=== PATIENT | male | born 1965 | race Caucasian/White ===

== ENCOUNTER 2017-01-16 23:54 | Emergency (ER) | payer OTHER, MEDICARE ==
[~2017-01-16] VITALS: Ht 170.2 cm; Wt 87.5 kg
[~2017-01-16 23:54] MED LIST: AZIT250T6 PO; HYDR-971 PO; PRED50TA PO; PREG50CA PO; PREG75CA PO
[2017-01-17] MEDS ORDERED: KETOROLAC TROMETHAMINE 30 MG/ML INJ. IV ONE (00:15)
[2017-01-17] MEDS ORDERED: 0.9 % SODIUM CHLORIDE 10 ML DISP.SYRIN. IV PRN (00:15)
[2017-01-17] MEDS ORDERED: HYDROmorphone 2 MG/ML VIAL IV/SQ PRN (00:15)
[2017-01-17] MEDS ORDERED: IV NORMAL SALINE 1000ML BAG 1,000 ML IV SCH (00:15)
[2017-01-17 00:23] LABS: BASE EXCESS COOX 2 mmol/L (-3-3); HCO3 COOX 27 mmol/L (21-28); METHEMOGLOBIN 0.3 % (0.0-1.9); OXYHEMOGLOBIN 81.7 %; PCO2 COOX 43 mmHg (35-46); PH COOX 7.42 (7.35-7.45); PO2 COOX 71 mmHg (75-108); SAT O2 COOX 95 % (92-99); TOTAL HEMOGLOBIN 19.8 g/dL
[2017-01-17 00:43] LABS: CARBON MONOXIDE 13.7 % (0.0-1.9)
[2017-01-17] MEDS ORDERED: ONDANSETRON PF 4 MG/2 ML VIAL. IV ONE (00:45)
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
[2017-01-17] MEDS ORDERED: SILV20CR14 TP (01:31)
[2017-01-17] MEDS ORDERED: NAPR500T PO (01:31)
[2017-01-17] MEDS ORDERED: HYDR-2758 PO (01:31)
[2017-01-17 01:49] VITALS: BP 116/68
[2017-01-17] MEDS ORDERED: PREGABALIN 50 MG CAPSULE PO ONE (02:15)
--- NOTE | 2017-01-17 06:31 | EKG ---
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
== END 2017-01-17 02:25 | disposition home or self-care (01) ==
LOC: ER 23:54
DX: T59.891A Toxic effect of other specified gases, fumes and vapors, accidental (unintentional), initial encounter (principal); J68.9 Unspecified respiratory condition due to chemicals, gases, fumes and vapors; T21.11XA Burn of first degree of chest wall, initial encounter; T21.12XA Burn of first degree of abdominal wall, initial encounter; T22.152A Burn of first degree of left shoulder, initial encounter; T22.151A Burn of first degree of right shoulder, initial encounter; T21.14XA Burn of first degree of lower back, initial encounter; I10 Essential (primary) hypertension; F12.10 Cannabis abuse, uncomplicated; G89.29 Other chronic pain; M79.7 Fibromyalgia; J43.9 Emphysema, unspecified; X08.8XXA Exposure to other specified smoke, fire and flames, initial encounter; Y93.89 Activity, other specified; Y92.009 Unspecified place in unspecified non-institutional (private) residence as the place of occurrence of the external cause; Y99.8 Other external cause status
CPT/HCPCS: 36600; 71020; 82805; 84484; 93005; 96361; 96374; 96375; 99285; J1170; J1885; J2405; J7030

== ENCOUNTER → 2020-12-15 | Outpatient (CLI) | payer OTHER, MEDICARE ==
[2017-09-28 07:00] VITALS: BP 121/75
[~2020-12-15] MED LIST changes: +HYDR-2761 PO; +HYDR-3164 PO; -HYDR-971 PO; +NAPR-683 PO; +PREG-9 PO; -PREG50CA PO; +PREG50CA91 PO; -PREG75CA PO; +SILV20CR14 TP
--- NOTE | 2020-12-15 11:08 | RAD ---
EXAM: Chest, 2 views. HISTORY: Shortness of breath. COMPARISON: 09/27/2017 FINDINGS: 2 views of the chest are obtained. There is no infiltrate, pleural effusion or pneumothorax . The heart is normal in size. IMPRESSION: No acute pulmonary finding. Electronically signed by: Kay Morfin MD (12/15/2020 11:06 AM) [id number]
== END ==
LOC: RAD 10:25
PROVIDERS: ATTEND Internal Medicine Pulmonary Disease
DX: R06.02 Shortness of breath (principal)
CPT/HCPCS: 71046

== ENCOUNTER → 2021-03-13 | Outpatient (CLI) | payer OTHER, MEDICARE ==
[2017-09-28 07:00] VITALS: BP 121/75
--- NOTE | 2021-03-14 19:27 | SLEEP ---
DATE OF STUDY: 03/13/2021 HOME SLEEP STUDY ATTENDING PHYSICIAN: Charleen Ferro MD The patient is a 55-year-old who weighs 220 pounds with a BMI of 35.5. The patient's [place] score was 13. The patient underwent home sleep study performed by [facility]. Total recording time was 471 minutes. During the night study, the patient had 42 central apneas, no obstructive apneas, 36 mixed apneas and 12 hypopneas. The patient's AHI was 12.3 per hour. Nocturnal oximetry study revealed an average oxygen saturation of 88% with lowest of 81% and 362 minutes were spent with oxygen saturation less than 90% and 9 minutes with saturation less than 85%. Mean heart rate 79 beats per minute. IMPRESSION: 1. Mild obstructive sleep apnea at an AHI of 12.3 per hour. 2. Nocturnal hypoxia secondary to obstructive sleep apnea and suspected hypoventilation. RECOMMENDATIONS: 1. The patient is clinically symptomatic with an [place] score of 13. The patient would benefit from treatment of sleep apnea with CPAP. Alternatively, oral appliance can be considered. 2. Once the patient is optimally treatment, then follow up in 4-6 weeks to assess compliance and to document clinical improvement. 3. Weight loss is strongly advised. 4. 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 5. Cautioned regarding driving until symptoms of sleep apnea resolve with above recommendation. JENNIE DR: Sierra TID: [id number] CC: CHARLEEN FERRO MD
== END ==
LOC: RT 08:46
PROVIDERS: ATTEND Internal Medicine Pulmonary Disease
DX: G47.33 Obstructive sleep apnea (adult) (pediatric) (principal); Q79.60 Ehlers-Danlos syndrome, unspecified
CPT/HCPCS: G0399

== ENCOUNTER → 2021-12-04 | Outpatient (CLI) | payer OTHER, MEDICARE ==
[2017-09-28 07:00] VITALS: BP 121/75
[~2021-12-04] MED LIST changes: +ALBU2.5V8 IH; +ATOR40TA59 PO; +FERR-36 PO; +METF500T16 PO; +NAPR-514 PO; +OMEP20TA91 PO; +PREG200C PO
[2021-12-04 08:50] LABS: BASO # 0.1 x10^3/uL (0.0-0.2); BASO % 1 % (0-3); EOS # 0.4 x10^3/uL (0.0-0.7); EOS % 5 % (0-3); HEMATOCRIT 59.7 % (39.0-53.0); HEMOGLOBIN 20.7 g/dL (13.0-17.5); LYMPH # 2.4 x10^3/uL (1.0-4.8); LYMPH % 27 % (24-48); MEAN CORPUSCULAR HEMOGLOBIN 34 pg (25-35); MEAN CORPUSCULAR HGB CONC 35 g/dL (31-37); MEAN CORPUSCULAR VOLUME 97 fL (79-100); MONO # 0.8 x10^3/uL (0.0-1.1); MONO % 9 % (0-9); NEUT # 5.3 x10^3/uL (1.8-7.7); NEUT % 59 % (31-73); PLATELET COUNT 139 x10^3/uL (140-400); RED BLOOD COUNT 6.19 x10^6/uL (4.30-5.70); RED CELL DISTRIBUTION WIDTH 14.5 % (11.5-14.5); WHITE BLOOD COUNT 9.1 x10^3/uL (4.0-11.0)
[2021-12-04 08:54] LABS: ALBUMIN 3.9 g/dL (3.4-5.0); CALCIUM 8.9 mg/dL (8.5-10.1); CREATININE 0.9 mg/dL (0.7-1.3); GFR 87.6; POTASSIUM 4.4 mmol/L (3.5-5.1)
[2021-12-04 11:38] LABS: PROTHROMBIN TIME PATIENT 11.4 SEC (11.7-14.0)
--- NOTE | 2021-12-04 11:58 | EKG ---
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
--- NOTE | 2021-12-04 12:29 | RAD ---
EXAM: Chest, 2 views. HISTORY: Tobacco abuse. COMPARISON: 12/15/2020 FINDINGS: 2 views of the chest are obtained. There is no infiltrate, pleural effusion or pneumothorax . The heart is normal in size. There are chronic appearing interstitial changes. IMPRESSION: No acute pulmonary finding. Electronically signed by: Kay Morfin MD (12/04/2021 12:26 PM) [id number]
[2021-12-04 13:03] LABS: PLT ESTIMATE DECREASED (ADEQUATE)
== END | disposition home or self-care (01) ==
LOC: SURGPAT 08:16
PROVIDERS: ATTEND Orthopaedic Surgery
DX: Z01.818 Encounter for other preprocedural examination (principal); M17.12 Unilateral primary osteoarthritis, left knee; Z72.0 Tobacco use; M89.9 Disorder of bone, unspecified
CPT/HCPCS: 36415; 71046; 80048; 82040; 82306; 83036; 85025; 85610; 85651; 85730; 87641; 93005

== ENCOUNTER → 2021-12-11 | Outpatient (CLI) | payer OTHER, MEDICARE ==
[2017-09-28 07:00] VITALS: BP 121/75
[2021-12-11 10:47] LABS: BASO # 0.1 x10^3/uL (0.0-0.2); BASO % 1 % (0-3); EOS # 0.3 x10^3/uL (0.0-0.7); EOS % 3 % (0-3); HEMATOCRIT 59.3 % (39.0-53.0); HEMOGLOBIN 20.4 g/dL (13.0-17.5); LYMPH # 2.3 x10^3/uL (1.0-4.8); LYMPH % 28 % (24-48); MEAN CORPUSCULAR HEMOGLOBIN 33 pg (25-35); MEAN CORPUSCULAR HGB CONC 35 g/dL (31-37); MEAN CORPUSCULAR VOLUME 97 fL (79-100); MONO # 0.8 x10^3/uL (0.0-1.1); MONO % 10 % (0-9); NEUT # 4.9 x10^3/uL (1.8-7.7); NEUT % 58 % (31-73); PLATELET COUNT 146 x10^3/uL (140-400); RED BLOOD COUNT 6.11 x10^6/uL (4.30-5.70); RED CELL DISTRIBUTION WIDTH 14.7 % (11.5-14.5); WHITE BLOOD COUNT 8.4 x10^3/uL (4.0-11.0)
[2021-12-11 11:04] LABS: CALCIUM 9.3 mg/dL (8.5-10.1); CREATININE 0.8 mg/dL (0.7-1.3); GFR 100.4; POTASSIUM 4.7 mmol/L (3.5-5.1)
[2021-12-11 11:10] LABS: ALBUMIN 3.9 g/dL (3.4-5.0); ALBUMIN/GLOBULIN RATIO 0.9 (1.0-1.7); TOTAL BILIRUBIN 0.6 mg/dL (0.2-1.0); TOTAL PROTEIN 8.2 g/dL (6.4-8.2)
== END ==
LOC: ONCLAB 09:59
PROVIDERS: ATTEND Internal Medicine Hematology & Oncology
DX: D75.838 Other thrombocytosis (principal); D45 Polycythemia vera
CPT/HCPCS: 36415; 80053; 81270; 82668; 85025; 85045